=== PATIENT | female | born 1990 | race African-American/Black ===

== ENCOUNTER 2022-05-24 15:04 | Outpatient (CLI) | payer MEDICARE, OTHER | END 2022-05-24 15:05 | disposition home or self-care (01) | LOC: CSHCT 15:04 | PROVIDERS: ATTEND Obstetrics & Gynecology | DX: K09.8 Other cysts of oral region, not elsewhere classified (principal); D27.1 Benign neoplasm of left ovary; D27.0 Benign neoplasm of right ovary | CPT/HCPCS: 74176 ==